=== PATIENT | female | born 1995 | race Caucasian/White ===

== ENCOUNTER 2022-01-25 10:37 | Day surgery (SDC) | payer MEDICAID ==
[~2022-01-25] VITALS: Ht 139.7 cm; Wt 68.6 kg
[2022-01-25 10:55] VITALS: BP 93/52
[2022-01-25] MEDS ORDERED: fentaNYL/PF 50MCG/1 ML 2ML syringe ONE ×2 (11:01→15:37)
[2022-01-25] MEDS ORDERED: MIDAZolam 1 MG/ML 5ML VIAL ONE ×2 (11:01→15:37)
[2022-01-25] MEDS ORDERED: LIDOcaine Viscous 15ml cup ONE ×2 (11:01→15:38)
[2022-01-25] MEDS ORDERED: QUET25TA36 PO (11:05)
[2022-01-25] MEDS ORDERED: CLON-371 (11:05)
[2022-01-25] MEDS ORDERED: PREG150C46 (11:05)
[2022-01-25] MEDS ORDERED: ONDA-103 PO (11:05)
[2022-01-25] MEDS ORDERED: FLUO-167 PO (11:05)
[2022-01-25] MEDS ORDERED: NALD0.2T3 PO (11:05)
[2022-01-25] MEDS ORDERED: LINA290C (11:05)
[2022-01-25] MEDS ORDERED: ESOM20CA38 (11:05)
[2022-01-25] MEDS ORDERED: FENT1PAT5 TOP (11:05)
[2022-01-25] MEDS ORDERED: NORG1TAB86 PO (11:05)
[2022-01-25] MEDS ORDERED: NALO12.52 PO (11:05)
[2022-01-25] MEDS ORDERED: PREG300C19 PO (11:05)
[2022-01-25] MEDS ORDERED: MONT-40 PO (11:05)
[2022-01-25] MEDS ORDERED: MESA500C5 (11:05)
[2022-01-25] MEDS ORDERED: BUDE3CAP11 (11:05)
[2022-01-25] MEDS ORDERED: CETI10TA14 PO (11:05)
[2022-01-25] MEDS ORDERED: NORT25CA PO (11:05)
[2022-01-25] MEDS ORDERED: CLOT15CR73 TP (11:06)
[2022-01-25] MEDS ORDERED: HYOS0.1285 PO (11:07)
[2022-01-25] MEDS ORDERED: DOCU100C40 PO (11:07)
[2022-01-25] MEDS ORDERED: LACT10SO57 PO (11:09)
[2022-01-25] MEDS ORDERED: LAMO100T (11:10)
[2022-01-25] MEDS ORDERED: MAGN296S68 PO (11:11)
[2022-01-25] MEDS ORDERED: nasonex INH (11:13)
[2022-01-25] MEDS ORDERED: POLY17PO59 PO (11:14)
[2022-01-25] MEDS ORDERED: TIZA-189 PO (11:15)
[2022-01-25] MEDS ORDERED: ACYC5CRE2 TOP (11:16)
[2022-01-25] MEDS ORDERED: diphenhydrAMINE 50 mg/ml inj ONE (12:38)
[2022-01-25 13:00] VITALS: BP 128/96
[2022-01-25 13:10] VITALS: BP 134/84
[2022-01-25 13:20] VITALS: BP 118/67
[2022-01-25 13:25] VITALS: BP 123/76
== END 2022-01-25 13:30 | disposition home or self-care (01) ==
LOC: GI LAB 10:37
PROVIDERS: ATTEND Internal Medicine Gastroenterology
DX: K31.84 Gastroparesis (principal); K22.89 Other specified disease of esophagus; Z98.890 Other specified postprocedural states; Z79.899 Other long term (current) drug therapy
CPT/HCPCS: 43236; 43239; 43245; 99152; C1726; J1200; J2250; J3010; J7030; Z7512; 43243; 99153; A4620